=== PATIENT | female | born 1985 | race African-American/Black ===

== ENCOUNTER 2025-05-05 21:10 | Emergency (ER) | payer OTHER, SELFPAY ==
--- OUTSIDE RECORDS SUMMARY | 2024-09-09 09:30 | XMS_ITS ---
Author Organization [facility] [address] Address [address] [place] [address] Care Team Providers Care Can Sorter Name Role Phone MAMIE TARANGO Unavailable [phone] Encounters Encounter Location Date Provider Diagnosis [facility] [address] [address] 09/09/2024 MAMIE TARANGO Plan Of Treatment No Information Progress Notes * ARTEMIO CURRYADOB:0 1985 (39 yo F)Acc No.[id number]:09/09/2024 CPE Patient: Jorden HUSSEIN ARTEMIO RODRIGUES Provider: Keiry TARANGO :1985 A ge:39 Y S ex:Female Date:09/09/2024 Address:[address] [place] [address] Care Plan Details* * Electronic signature of MABEL TARANGO PA-C, [id number] on 05/06/2025 at 01:02 AM EST Sign off status: Pending * Provider: Keiry TARANGO Date: 0 09/09/2024 Generated for Bubba gaines/Marcie/eTransmitting on: 1 07/07/2024 01:02 AM EST
--- OUTSIDE RECORDS SUMMARY | 2024-10-09 09:30 | XMS_ITS ---
Author Organization [facility] [address] Address [address] [place] [address] Care Team Providers Care Vinyl Cutter Name Role Phone MAMIE TARANGO Unavailable [phone] Encounters Encounter Location Date Provider Diagnosis [facility] [address] [address] 10/09/2024 MAMIE TARANGO Plan Of Treatment No Information Progress Notes * ARTEMIO CURRYADOB:0 1985 (39 yo F)Acc No.[id number]:10/09/2024 CPE Patient: GARRICK ZHOUGRUPO RODRIGUES Provider: Keiry TARANGO :1985 A ge:39 Y S ex:Female Date:10/09/2024 Address:[address] [place] [address] Care Plan Details* * Electronic signature of MABEL TARANGO PA-C, [id number] on 05/06/2025 at 01:02 AM EST Sign off status: Pending * Provider: Keiry TARANGO Date: 0 10/09/2024 Generated for Bubba gaines/Marcie/eTransmitting on: 1 07/07/2024 01:02 AM EST
[2025-05-05 22:09] VITALS: BP 171/98; PULSE 67; RESP 16; TEMP 36.4; O2SAT 99; BMI 34.0
--- NOTE | 2025-05-05 22:17 | ECG_ITS ---
Test Reason : HTN Blood Pressure : */* mmHG Vent. Rate : 59 BPM Atrial Rate : 59 BPM P-R Int : 178 ms QRS Dur : 84 ms QT Int : 428 ms P-R-T Axes : 47 -6 93 degrees QTcB Int : 423 ms Sinus bradycardia Nonspecific T wave abnormality Abnormal ECG No previous ECGs available Referred By: Generic ED Physician Electronically Signed By: ROCIO SOARES MD
--- NOTE | 2025-05-05 22:31 | ED_ITS ---
HPI - General Adult General Chief complaint: General Medical Stated complaint: high blood pressure Time Seen by Provider: 05/06/25 00:31 Source: patient Mode of arrival: ambulatory Limitations: no limitations History of Present Illness ED Provider: Jesse BARRAZA HPI narrative: The patient is a 39-year-old female with a history of hypertension currently without a PCP presenting to the ED reporting she ran out of her hydrochlorothiazide and is about to run out of her lisinopril, reporting increased hypertension when checking BP at home, with associated fatigue over the past few days, also reports intermittent stabbing sensation of the chest 2 days ago which resolved spontaneously, no chest pain today. Patient denies headache. Presenting for evaluation and requesting refill of medications. Related Data Previous Rx's ?Medication ?Instructions ?Recorded hydrochlorothiazide 25 mg tablet 25 mg PO DAILY #14 ta bs 05/06/25 lisinopril 10 mg tablet 10 mg PO DAILY #14 tabs 04/27 Allergies Allergy/AdvReac Type Severity Reaction Status Date / Time No Known Allergies Allergy Verified 05/05/25 22:17 Review of Systems 2 Review of Systems: Yes all other systems are reviewed and are negative PMFSH Social History Social History Advance Directives: No Advance Directives Information Provided: Yes Physical Exam ED Vital Signs: Vital Signs - 24 hr 05/05/25 22:09 05/06/25 01:26 Temperature 97.6 F 97.6 F Pulse Rate 67 67 Respiratory Rate 16 16 Blood Pressure 171/98 H 171/98 H Pulse Oximetry 99 99 Oxygen Delivery Method Room Air Room Air BMI result Body Mass Index 34.0 CONSTITUTIONAL: The patient appears non-toxic, well nourished and in no acute distress. Vital signs as documented. HEAD: Atraumatic, normocephalic. EYES: EOMs grossly intact, pupils equal, conjunctiva clear, no exudate. ENT: Nares patent, no discharge. Airway patent, no audible stridor, visible mucosa is pink and moist without noted lesions. NECK: trachea is midline, no obvious masses or gross abnormalities. CHEST: Symmetric movement, normal appearance. LUNGS: Non-labored work of breathing. CARDIAC: No evidence of hypoperfusion. ABDOMEN: Nondistended, no obvious injury. : Deferred. EXTREMITIES: Moves all extremities spontaneously without reported pain. No obvious injury or deformity noted. NEURO: Alert and oriented x3, CN II-XII appear grossly intact. Cerebellar Functioning grossly intact. Speech clear and appropriate. SKIN: Warm, dry, color appropriate. No rashes or lesions noted. Course Course Course Narrative: 10:31 PM 05/05/2025 (Toyin BARRAZA): Rapid medical examination performed, full details of HPI, MDM, care plan and disposition deferred to primary provider. 39-year-old female with a history of hypertension currently without a PCP presenting to the ED reporting she ran out of her hydrochlorothiazide and is about to run out of her lisinopril, reporting increased hypertension when checking BP at home, with associated fatigue over the past few days, also reports intermittent stabbing sensation of the chest 2 days ago which resolved spontaneously, no chest pain today. Patient denies headache. Presenting for evaluation and requesting refill of medications. Troponin, EKG, and basic labs ordered to rule out end-organ damage. Medical Decision Making Medical Decision Making MDM Narrative: 12:34 AM 05/06/2025 (Toyin BARRAZA): The patient is a 39-year-old female with a history of hypertension currently without a PCP presenting to the ED reporting she ran out of her hydrochlorothiazide and is about to run out of her lisinopril, reporting increased hypertension when checking BP at home, with associated fatigue over the past few days, also reports intermittent stabbing sensation of the chest 2 days ago which resolved spontaneously, no chest pain today. Patient denies headache. Presenting for evaluation and requesting refill of medications. Exam is unremarkable. Patient appears in no acute distress. Patient was evaluated with EKG, troponin, and basic labs, EKG is nonischemic, troponin is negative, laboratory evaluation shows no leukocytosis, significant anemia, electrolyte abnormality, or PEEWEE. The patient will be discharged with a refills and instructions to follow up with PCP. Admission/Observation Consideration of admission/observation: Escalation of care including admission/observation considered Lab Data [facility] Lab Attestation statement: I reviewed the patient's lab results. 05/05/25 23:50 05/05/25 23:50 Labs: Lab Results 05/05/25 Range/Units 23:50 WBC 7.2 (4.8-10.8) X10*3/uL RBC 4.28 (4.20-5.50) X10*6/uL Hgb 11.9 L (12.0-16.0) g/dl Hct 36.3 L (37.0-47.0) % MCV 84.8 (80.0-98.0) fL MCH 27.8 (27.0-33.0) pg MCHC 32.8 (31.0-35.0) g/dl RDW 13.4 (11.0-16.0) % Plt Count 336 (160-400) X10*3/uL MPV 9.4 (9.4-12.3) fL Immature Gran % (Auto) 0.3 (0.0-0.4) % Neut % (Auto) 45.9 (45-73) % Lymph % (Auto) 44.2 H (20-40) % [place] % (Auto) 7.0 (2-11) % Eos % (Auto) 1.5 (0-4) % Baso % (Auto) 1.1 (0-2) % Lymph # (Auto) 3.2 (1.2-4.9) X10*3/uL [place] # (Auto) 0.5 (0.1-1.2) X10*3/uL Eos # (Auto) 0.1 (0.0-0.4) X10*3/uL Baso # (Auto) 0.1 (0.0-0.2) X10*3/uL Abs Immat Gran (auto) 0.02 (0.00-0.03) X10*3/uL Absolute Neuts (auto) 3.3 (2.0-8.3) x10*3/uL Absolute Nucleated RBC 0.000 (0.0-0.012) X10*3/uL Nucleated RBC % (auto) 0.0 (0.0-0.2) /100WBC Sodium 140 (135-145) mmol/L Potassium 3.9 (3.3-5.1) mmol/L Chloride 105 (96-108) mmol/L Carbon Dioxide 26 (22-29) mmol/L Anion Gap 13 (12-20) BUN 8 L (9-16) mg/dL Creatinine 0.65 (0.5-1.4) mg/dL Estim Creat Clear Calc 141.5 Estimated GFR > 60 Random Glucose 108 (60-115) mg/dL Calcium 9.5 (8.4-10.2) mg/dL Troponin I High Sens < 2.7 (<3.5-17.0) ng/L Independent Interpretation I performed an independent interpretation of an: EKG (EKG shows sinus bradycardia with a rate of 59, no evidence of acute ischemia, no ST elevation, no ectopy. QTC 423. No old for comparison.) External Record Review External record reviewed: Outpatient record Discharge Plan Discharge Clinical Impression: HTN (hypertension) Patient Disposition: Home, Self-Care Instructions: Chronic Hypertension (ED), Hypertension (ED) Additional Instructions: Thank you for choosing [facility]'s Emergency Department for your care today. Thankfully your EKG, laboratory evaluation, exam, and vital signs today are reassuring. At this time there is no indication for admission to the hospital or continued ED observation, and it is safe to discharge you home. Your blood pressure was moderately elevated however thankfully there was no evidence of end-organ damage and your blood pressure does not currently require emergent lowering with IV medication. We have provided you a 2 week refill of your blood pressure medications. Please understand that this was a one time courtesy that will not be repeated, as the ED is not the appropriate avenue by which to refill your medications. Any further refills will need to be conducted through a primary care provider. Please follow up with the your primary care provider for re-evaluation, additional management of your blood pressure, and continued preventative care. If you do not have a primary care physician, please call the [facility] at [phone] to establish a new primary care physician. While waiting to establish your new primary care physician, you can call our Walk[facility]in [facility] at [phone] for non-emergency needs. Please return to the emergency department if you develop a severe or sudden change in your symptoms, a fever over 100.4 that does not improve with Tylenol or Ibuprofen, recurrent vomiting, or any other new or worsening symptoms or concerns. Prescriptions: New lisinopril 10 mg tablet 10 mg PO DAILY Qty: 14 0RF hydrochlorothiazide 25 mg tablet 25 mg PO DAILY Qty: 14 0RF Interventions: ED Discharge Assessment Last Done: 05/06/25 01:26 Discharge Date/Time: 05/06/25 01:26 Print Language: Armenian
[2025-05-05 23:56] LABS: MANUAL DIFF FLAG NO
[2025-05-05 23:58] LABS: Hematocrit 36.3 % (37.0-47.0); Hemoglobin 11.9 g/dl (12.0-16.0); Imm Gran Abs Auto 0.02 X10*3/uL (0.00-0.03); Imm Gran Pct Auto 0.3 % (0.0-0.4); Lymphocytes Absolute Auto 3.2 X10*3/uL (1.2-4.9); Mean Corpuscular HGB Conc 32.8 g/dl (31.0-35.0); Mean Corpuscular Hemoglobin 27.8 pg (27.0-33.0); Mean Corpuscular Volume 84.8 fL (80.0-98.0); NRBC Abs Auto 0.000 X10*3/uL (0.0-0.012); NRBC Pct Auto 0.0 /100WBC (0.0-0.2); Platelet Count 336 X10*3/uL (160-400); Red Blood Count 4.28 X10*6/uL (4.20-5.50); White Blood Count 7.2 X10*3/uL (4.8-10.8)
[2025-05-06 00:09] LABS: Anion Gap 13 (12-20); Blood Urea Nitrogen 8 mg/dL (9-16); Calcium 9.5 mg/dL (8.4-10.2); Carbon Dioxide 26 mmol/L (22-29); Chloride 105 mmol/L (96-108); Creatinine Clr Calc Pharmacy 141.5; Estimated Glomerular Filt Rate > 60; Potassium 3.9 mmol/L (3.3-5.1); Sodium 140 mmol/L (135-145)
[2025-05-06 00:19] LABS: Troponin-I High Sensitivity < 2.7 ng/L (<3.5-17.0)
--- OUTSIDE RECORDS SUMMARY | 2025-05-06 01:02 | XMS_ITS | Patient Health Record ---
Author Organization [facility] Address [address] [place] [id number] Care Team Providers Care Insulation Engineman Name Role Phone MAMIE TARANGO Unavailable [phone] Allergies No Known Allergies Reason For Referral No Information Medications Medication SIG (Take, Route, Frequency, Duration) Notes Start Date End Date Status hydroCHLOROthiazide 12.5 MG Tablet Oral; Duration: 90 Days Active Lisinopril 10 MG Tablet Oral; Duration: 90 Days Active Social History Section Notes: social drinker Problems Problem Type SNOMED Code ICD Code Onset Dates Problem Status W/U Status Risk Notes Problem Essential hypertension (41703671) Essential (primary) hypertension (I10) Active confirmed Problem Lipid screening (789944320) Encounter for screening for lipoid disorders (Z13.220) Active confirmed Problem Adult health examination (923371421) Adult general medical exam (Z00.00) Active confirmed Problem Avitaminosis D (94430792) Avitaminosis D (E55.9) Active confirmed Problem Endocrine/[place] screening (633689171) Encounter for screening for endocrine disorder (Z13.29) Active confirmed Problem Difficulty sleeping (858696631) Sleeping difficulty (G47.9) Active confirmed Vital Signs Heart Rate 68 /min 08/14/2024 Oximetry 99 % 08/14/2024 Blood pressure diastolic 94 mm Hg 08/14/2024 Height 67 in 08/14/2024 Blood pressure systolic 144 mm Hg 08/14/2024 Weight 210 lbs 08/14/2024 BMI 32.89 kg/m2 08/14/2024 Encounters Encounter Location Date Provider Diagnosis [facility] [address] [address] 08/14/2024 MAMIE TARANGO Essential (primary) hypertension I10 ; Sleeping difficulty G47.9 ; Pain of both breasts N64.4 ; Intermittent palpitations R00.2 and Obesity (BMI 30.0-34.9) E66.811 Assessments Encounter Date Diagnosis (ICD Code) Assessment Notes Treatment Notes Treatment Clinical Notes Section Notes 08/14/2024 Essential (primary) hypertension (ICD-10 - I10) Naty is a 39-year-old female who presents to the office today for new patient evaluation. Patient is welcomed to the practice. They are coming from [place]. Last complete physical exam with labs 1+ years ago. Medications, medical history, allergies, surgeries, hospitalizations, family history, and social history were reviewed. Problem list updated. Cardiopulmonary and abdominal exam unremarkable. Patient will follow-up in office. All patient questions answered at this time. # Hypertension: Blood pressure elevated today 144/94. Asymptomatic without chest pain or shortness of breath. Continue lisinopril 10 mg daily. Continue hydrochlorothiazide 12.5 mg daily. Discussed red flag signs of hypertension. Will continue to monitor at subsequent visits. # Trouble sleeping: Patient reporting hard time falling asleep. Would like to avoid prescription medications. Discussed benefit of trialing trxz-zfr-pappilt melatonin or magnesium glycinate supplements. Discussed importance of sleep hygiene. Will continue to monitor and reevaluate at subsequent visits. # Breast pain: Patient reporting cyclical bilateral breast pain around time of her menses. Reports no acute changes including masses, lumps, or nipple discharge, or rashes. No history of breast cancer in the family to her knowledge. Discussed that these symptoms are very common as relates to hormonal changes during menses, advised patient to continue to monitor symptoms and continue annual gynecologic visit for breast exam. Will begin screening for breast cancer at age 40. # Palpitations: Patient reporting occasional sensation of her heart racing. States that this occurs after drinking. Has had an echo before approximately 2 years ago which she states was unremarkable. Also presented to urgent care at 1 time for the symptoms, reports EKG within normal limits per patient. At this time we will obtain updated labs including CBC, CMP, and lipid panel as well as TSH and have ordered repeat transthoracic echo. Cardiac exam unremarkable, regular rate and rhythm, normal S1 and S2 without murmurs, rubs, or gallops. Will continue to monitor. # Obesity: Weight 210 pounds, BMI 32.89. Discussed importance of diet and lifestyle for maintaining healthy weight and preventing other comorbidities. Will continue to monitor at subsequent visits. All questions have been answered to patient's satisfaction. Patient verbalized understanding of diagnosis and treatments explained. Advised to call sooner prior to next visit it any questions/concerns arise. Case discussed with collaborating physician Niharika Manjarrez who reviewed the assessment and plan. Chart, medications, labs, vital signs reviewed. Dictation was accomplished with the use of [employer] voice recognition software, which is prone to medical misidentifications and grammatical errors. This are unintentional and the practitioner does try to identify and correct these, but some could still be present. Please do not hesitate to contact practitioner for clarification. 08/14/2024 Sleeping difficulty (ICD-10 - G47.9) Naty is a 39-year-old female who presents to the office today for new patient evaluation. Patient is welcomed to the practice. They are coming from [place]. Last complete physical exam with labs 1+ years ago. Medications, medical history, allergies, surgeries, hospitalizations, family history, and social history were reviewed. Problem list updated. Cardiopulmonary and abdominal exam unremarkable. Patient will follow-up in office. All patient questions answered at this time. # Hypertension: Blood pressure elevated today 144/94. Asymptomatic without chest pain or shortness of breath. Continue lisinopril 10 mg daily. Continue hydrochlorothiazide 12.5 mg daily. Discussed red flag signs of hypertension. Will continue to monitor at subsequent visits. # Trouble sleeping: Patient reporting hard time falling asleep. Would like to avoid prescription medications. Discussed benefit of trialing eduk-vxt-jxibuxn melatonin or magnesium glycinate supplements. Discussed importance of sleep hygiene. Will continue to monitor and reevaluate at subsequent visits. # Breast pain: Patient reporting cyclical bilateral breast pain around time of her menses. Reports no acute changes including masses, lumps, or nipple discharge, or rashes. No history of breast cancer in the family to her knowledge. Discussed that these symptoms are very common as relates to hormonal changes during menses, advised patient to continue to monitor symptoms and continue annual gynecologic visit for breast exam. Will begin screening for breast cancer at age 40. # Palpitations: Patient reporting occasional sensation of her heart racing. States that this occurs after drinking. Has had an echo before approximately 2 years ago which she states was unremarkable. Also presented to urgent care at 1 time for the symptoms, reports EKG within normal limits per patient. At this time we will obtain updated labs including CBC, CMP, and lipid panel as well as TSH and have ordered repeat transthoracic echo. Cardiac exam unremarkable, regular rate and rhythm, normal S1 and S2 without murmurs, rubs, or gallops. Will continue to monitor. # Obesity: Weight 210 pounds, BMI 32.89. Discussed importance of diet and lifestyle for maintaining healthy weight and preventing other comorbidities. Will continue to monitor at subsequent visits. All questions have been answered to patient's satisfaction. Patient verbalized understanding of diagnosis and treatments explained. Advised to call sooner prior to next visit it any questions/concerns arise. Case discussed with collaborating physician Niharika Manjarrez who reviewed the assessment and plan. Chart, medications, labs, vital signs reviewed. Dictation was accomplished with the use of [employer] voice recognition software, which is prone to medical misidentifications and grammatical errors. This are unintentional and the practitioner does try to identify and correct these, but some could still be present. Please do not hesitate to contact practitioner for clarification. 08/14/2024 Pain of both breasts (ICD-10 - N64.4) Naty is a 39-year-old female who presents to the office today for new patient evaluation. Patient is welcomed to the practice. They are coming from [place]. Last complete physical exam with labs 1+ years ago. Medications, medical history, allergies, surgeries, hospitalizations, family history, and social history were reviewed. Problem list updated. Cardiopulmonary and abdominal exam unremarkable. Patient will follow-up in office. All patient questions answered at this time. # Hypertension: Blood pressure elevated today 144/94. Asymptomatic without chest pain or shortness of breath. Continue lisinopril 10 mg daily. Continue hydrochlorothiazide 12.5 mg daily. Discussed red flag signs of hypertension. Will continue to monitor at subsequent visits. # Trouble sleeping: Patient reporting hard time falling asleep. Would like to avoid prescription medications. Discussed benefit of trialing illa-owr-limbrsl melatonin or magnesium glycinate supplements. Discussed importance of sleep hygiene. Will continue to monitor and reevaluate at subsequent visits. # Breast pain: Patient reporting cyclical bilateral breast pain around time of her menses. Reports no acute changes including masses, lumps, or nipple discharge, or rashes. No history of breast cancer in the family to her knowledge. Discussed that these symptoms are very common as relates to hormonal changes during menses, advised patient to continue to monitor symptoms and continue annual gynecologic visit for breast exam. Will begin screening for breast cancer at age 40. # Palpitations: Patient reporting occasional sensation of her heart racing. States that this occurs after drinking. Has had an echo before approximately 2 years ago which she states was unremarkable. Also presented to urgent care at 1 time for the symptoms, reports EKG within normal limits per patient. At this time we will obtain updated labs including CBC, CMP, and lipid panel as well as TSH and have ordered repeat transthoracic echo. Cardiac exam unremarkable, regular rate and rhythm, normal S1 and S2 without murmurs, rubs, or gallops. Will continue to monitor. # Obesity: Weight 210 pounds, BMI 32.89. Discussed importance of diet and lifestyle for maintaining healthy weight and preventing other comorbidities. Will continue to monitor at subsequent visits. All questions have been answered to patient's satisfaction. Patient verbalized understanding of diagnosis and treatments explained. Advised to call sooner prior to next visit it any questions/concerns arise. Case discussed with collaborating physician Niharika Manjarrez who reviewed the assessment and plan. Chart, medications, labs, vital signs reviewed. Dictation was accomplished with the use of [employer] voice recognition software, which is prone to medical misidentifications and grammatical errors. This are unintentional and the practitioner does try to identify and correct these, but some could still be present. Please do not hesitate to contact practitioner for clarification. 08/14/2024 Intermittent palpitations (ICD-10 - R00.2) Naty is a 39-year-old female who presents to the office today for new patient evaluation. Patient is welcomed to the practice. They are coming from [place]. Last complete physical exam with labs 1+ years ago. Medications, medical history, allergies, surgeries, hospitalizations, family history, and social history were reviewed. Problem list updated. Cardiopulmonary and abdominal exam unremarkable. Patient will follow-up in office. All patient questions answered at this time. # Hypertension: Blood pressure elevated today 144/94. Asymptomatic without chest pain or shortness of breath. Continue lisinopril 10 mg daily. Continue hydrochlorothiazide 12.5 mg daily. Discussed red flag signs of hypertension. Will continue to monitor at subsequent visits. # Trouble sleeping: Patient reporting hard time falling asleep. Would like to avoid prescription medications. Discussed benefit of trialing oibh-zbb-nrycblz melatonin or magnesium glycinate supplements. Discussed importance of sleep hygiene. Will continue to monitor and reevaluate at subsequent visits. # Breast pain: Patient reporting cyclical bilateral breast pain around time of her menses. Reports no acute changes including masses, lumps, or nipple discharge, or rashes. No history of breast cancer in the family to her knowledge. Discussed that these symptoms are very common as relates to hormonal changes during menses, advised patient to continue to monitor symptoms and continue annual gynecologic visit for breast exam. Will begin screening for breast cancer at age 41. # Palpitations: Patient reporting occasional sensation of her heart racing. States that this occurs after drinking. Has had an echo before approximately 2 years ago which she states was unremarkable. Also presented to urgent care at 1 time for the symptoms, reports EKG within normal limits per patient. At this time we will obtain updated labs including CBC, CMP, and lipid panel as well as TSH and have ordered repeat transthoracic echo. Cardiac exam unremarkable, regular rate and rhythm, normal S1 and S2 without murmurs, rubs, or gallops. Will continue to monitor. # Obesity: Weight 210 pounds, BMI 32.89. Discussed importance of diet and lifestyle for maintaining healthy weight and preventing other comorbidities. Will continue to monitor at subsequent visits. All questions have been answered to patient's satisfaction. Patient verbalized understanding of diagnosis and treatments explained. Advised to call sooner prior to next visit it any questions/concerns arise. Case discussed with collaborating physician Niharika Manjarrez who reviewed the assessment and plan. Chart, medications, labs, vital signs reviewed. Dictation was accomplished with the use of [employer] voice recognition software, which is prone to medical misidentifications and grammatical errors. This are unintentional and the practitioner does try to identify and correct these, but some could still be present. Please do not hesitate to contact practitioner for clarification. 08/14/2024 Obesity (BMI 30.0-34.9) (ICD-10 - E66.811) Naty is a 39-year-old female who presents to the office today for new patient evaluation. Patient is welcomed to the practice. They are coming from [place]. Last complete physical exam with labs 1+ years ago. Medications, medical history, allergies, surgeries, hospitalizations, family history, and social history were reviewed. Problem list updated. Cardiopulmonary and abdominal exam unremarkable. Patient will follow-up in office. All patient questions answered at this time. # Hypertension: Blood pressure elevated today 144/94. Asymptomatic without chest pain or shortness of breath. Continue lisinopril 10 mg daily. Continue hydrochlorothiazide 12.5 mg daily. Discussed red flag signs of hypertension. Will continue to monitor at subsequent visits. # Trouble sleeping: Patient reporting hard time falling asleep. Would like to avoid prescription medications. Discussed benefit of trialing xjte-nkr-rogrhct melatonin or magnesium glycinate supplements. Discussed importance of sleep hygiene. Will continue to monitor and reevaluate at subsequent visits. # Breast pain: Patient reporting cyclical bilateral breast pain around time of her menses. Reports no acute changes including masses, lumps, or nipple discharge, or rashes. No history of breast cancer in the family to her knowledge. Discussed that these symptoms are very common as relates to hormonal changes during menses, advised patient to continue to monitor symptoms and continue annual gynecologic visit for breast exam. Will begin screening for breast cancer at age 41. # Palpitations: Patient reporting occasional sensation of her heart racing. States that this occurs after drinking. Has had an echo before approximately 2 years ago which she states was unremarkable. Also presented to urgent care at 1 time for the symptoms, reports EKG within normal limits per patient. At this time we will obtain updated labs including CBC, CMP, and lipid panel as well as TSH and have ordered repeat transthoracic echo. Cardiac exam unremarkable, regular rate and rhythm, normal S1 and S2 without murmurs, rubs, or gallops. Will continue to monitor. # Obesity: Weight 210 pounds, BMI 32.89. Discussed importance of diet and lifestyle for maintaining healthy weight and preventing other comorbidities. Will continue to monitor at subsequent visits. All questions have been answered to patient's satisfaction. Patient verbalized understanding of diagnosis and treatments explained. Advised to call sooner prior to next visit it any questions/concerns arise. Case discussed with collaborating physician Niharika Manjarrez who reviewed the assessment and plan. Chart, medications, labs, vital signs reviewed. Dictation was accomplished with the use of [employer] voice recognition software, which is prone to medical misidentifications and grammatical errors. This are unintentional and the practitioner does try to identify and correct these, but some could still be present. Please do not hesitate to contact practitioner for clarification. Plan Of Treatment Pending Test Test Name Order Date LIPID PANEL, STANDARD 08/14/2024 COMPREHENSIVE METABOLIC PANEL 08/14/2024 CBC (INCLUDES DIFF/PLT) 08/14/2024 URINALYSIS, COMPLETE 08/14/2024 TSH W/REFLEX TO FT4 08/14/2024 VITAMIN D,25-OH,TOTAL,IA 08/14/2024 Insurance Providers Payer Name Payer Address Payer Phone Subscriber Number Group Number Insured Name Patient Relationship to Insured Coverage Start Date Coverage End Date [facility] [address] [place] [address] [id number] NATY CURRY Self - patient is the insured 4 Medical (General) History Medical History History ICD Code high blood pressure Surgical History Surgery Date(Month/Year) C section appendix removal liposuction (abdomen, 2022)
[2025-05-06 01:26] VITALS: BP 171/98; PULSE 67; RESP 16; TEMP 36.4; O2SAT 99
== END 2025-05-06 01:26 | disposition home or self-care (01) ==
PROVIDERS: Emergency Provider Emergency Medicine
DX: I10 Essential (primary) hypertension (principal)
CPT/HCPCS: 36415; 80048; 84484; 85025; 93005; 99283

== ENCOUNTER → 2025-05-05 22:17 | Outpatient (BNV) | payer OTHER, SELFPAY | PROVIDERS: Emergency Provider Emergency Medicine; Visit Provider Internal Medicine Cardiovascular Disease | DX: R00.1 Bradycardia, unspecified (principal) | CPT/HCPCS: 93010 ==